=== PATIENT | female | born 1995 | race Two or more races ===

== ENCOUNTER 2024-04-28 11:15 | Inpatient (IN) | payer OTHER ==
[~2024-04-28] VITALS: Ht 167.6 cm; Wt 91.6 kg
[2024-05-03] MEDS ORDERED: PRENATAL TABLE1 EAC1 (12:49)
[2024-05-03] MEDS ORDERED: METFORMIN HCL500 M3 (12:51)
[2024-05-03] MEDS ORDERED: MORPHINE SULFATE 4 MG/ML CARTRIDGE IV PRN (17:45)
[2024-05-03] MEDS ORDERED: RINGERS SOLUTION,LACTATED 1,000 ML IV SCH (17:45)
[2024-05-03 20:14] VITALS: BP 127/72
[2024-05-03 21:27] VITALS: BP 134/69
[2024-05-03 23:44] VITALS: BP 123/65
[2024-05-04 02:56] VITALS: BP 146/75
[2024-05-04] MEDS ORDERED: OXYTOCIN 500 ML IV ONE (07:00)
[2024-05-04] MEDS ORDERED: ERYTHROMYCIN BASE OPHT 1GM EACH TUBE OP ONE (07:25)
[2024-05-04] MEDS ORDERED: CHLORHEXIDINE GLUCONATE 120 ML BOTTLE TOP ONE (07:25)
[2024-05-04] MEDS ORDERED: OXYTOCIN 20 UNITS/1000ML RL PIGGYBAG IV ONE (07:25)
[2024-05-04] MEDS ORDERED: LIDOCAINE HCL 1% 10ML VIAL ONE (07:25)
[2024-05-04 07:44] VITALS: BP 126/75
[2024-05-04] MEDS ORDERED: OXYTOCIN 1,000 ML IV ONE (09:45)
[2024-05-04] MEDS ORDERED: ACETAMINOPHEN 500 MG GEL..CAP PO PRN (09:45)
[2024-05-04] MEDS ORDERED: CHLORHEXIDINE GLUCONATE 120 ML BOTTLE TOP SCH (09:45)
[2024-05-04 10:47] VITALS: BP 129/79
[2024-05-04 15:36] VITALS: BP 124/82
[2024-05-04] MEDS ORDERED: DOCUSATE SODIUM 100MG CAP PO SCH (17:00)
[2024-05-05 00:32] VITALS: BP 113/71
[2024-05-05 06:55] LABS: HEMATOCRIT 32.3 % (36.0-45.00); MEAN CORPUSCULAR HGB CONC 34.1 g/dl (32.0-36.0); PLATELET COUNT 156 K/uL (150-450); RED BLOOD COUNT 3.94 M/uL (4.00-6.00); RED CELL DISTRIBUTION WIDTH 17.1 % (11.5-14.5)
[2024-05-05 08:21] VITALS: BP 124/79
[2024-05-05] MEDS ORDERED: PNV,CALCIUM 72/IRON/FOLIC ACID 1 TAB TABLET PO SCH (09:00)
[2024-05-05 16:00] VITALS: BP 128/80
[2024-05-06] VITALS: BP 121/83
[2024-05-06 05:00] VITALS: BP 120/82
[2024-05-06 08:58] VITALS: BP 135/83
[2024-05-06 15:58] VITALS: BP 122/78
[2024-05-07 01:41] VITALS: BP 138/89
[2024-05-07 08:46] VITALS: BP 128/87
[2024-05-07 16:46] VITALS: BP 125/85
== END 2024-05-07 18:16 | disposition home or self-care (01) | DRG 807 ==
LOC: LDR 05-03 17:36 → OB/GYN 05-04 10:15
PROVIDERS: Obstetrics & Gynecology Gynecology; ADMIT Obstetrics & Gynecology; ATTEND Obstetrics & Gynecology
PROC: 4A1HXCZ Monitoring of Products of Conception, Cardiac Rate, External Approach (ICD-10-PCS; 2024-05-03)
PROC: 10E0XZZ Delivery of Products of Conception, External Approach (ICD-10-PCS; principal; 2024-05-04)
PROC: 0KQM0ZZ Repair Perineum Muscle, Open Approach (ICD-10-PCS; 2024-05-04)
PROC: 0UQMXZZ Repair Vulva, External Approach (ICD-10-PCS; 2024-05-04)
DX: O70.1 Second degree perineal laceration during delivery (principal); O71.82 Other specified trauma to perineum and vulva; O69.81X0 Labor and delivery complicated by cord around neck, without compression, not applicable or unspecified; Z37.0 Single live birth; Z3A.38 38 weeks gestation of pregnancy; Z20.822 Contact with and (suspected) exposure to COVID-19

== ENCOUNTER 2024-05-03 11:17 | Outpatient (CLI) | payer OTHER ==
[2024-05-03 12:15] VITALS: BP 132/79
[2024-05-03] MEDS ORDERED: PRENATAL TABLE1 EAC1 (12:49)
[2024-05-03] MEDS ORDERED: METFORMIN HCL500 M3 (12:51)
[2024-05-03] MEDS ORDERED: RINGERS SOLUTION,LACTATED 1,000 ML IV SCH (13:00)
[2024-05-03] MEDS ORDERED: MORPHINE SULFATE 4 MG/ML CARTRIDGE IV PRN (13:00)
[2024-05-03 13:13] LABS: HEMATOCRIT 38.8 % (36.0-45.00); HEMOGLOBIN 13.1 g/dL (12.0-15.00); MEAN CELL VOLUME 81.6 fL (80.00-100.00); MEAN CORPUSCULAR HEMOGLOBIN 27.6 pg (27.00-32.0); MEAN CORPUSCULAR HGB CONC 33.8 g/dl (32.0-36.0); PLATELET COUNT 158 K/uL (150-450); RED BLOOD COUNT 4.76 M/uL (4.00-6.00); RED CELL DISTRIBUTION WIDTH 16.9 % (11.5-14.5)
[2024-05-03 13:31] LABS: INR < 0.93; PARTIAL THROMBOPLASTIN TIME 28.5 SECONDS (22.0-34.0); PROTHROMBIN TIME 9.9 SECONDS (9.0-11.5)
[2024-05-03 14:53] VITALS: BP 125/81
[2024-05-03 15:23] VITALS: BP 124/85
== END 2024-05-03 17:31 | disposition still patient (30) ==
LOC: OBS/DEL 11:17 → NST 11:17 → OBS/DEL 12:50
PROVIDERS: ATTEND Obstetrics & Gynecology Gynecology
DX: O62.8 Other abnormalities of forces of labor (principal); Z3A.38 38 weeks gestation of pregnancy